=== PATIENT | male | born 1965 | race Caucasian/White ===

== ENCOUNTER 2017-08-19 13:11 | Emergency (ER) | payer BC ==
[~2017-08-19] VITALS: Ht 190.5 cm; Wt 117.0 kg
[2017-08-19 13:20] VITALS: BP 110/73; PULSE 74; RESP 18; TEMP 97.6; O2SAT 95
--- NOTE | 2017-08-19 13:46 | PD ---
HPI Chief Complaint: Numbness/Tingling Time Seen by Provider: 13:38 Travel History International Travel<30 days: No Contact w/Intl Traveler<30days: No Traveled to known affect area: No History of Present Illness HPI Patient presents with complaints of numbness and tingling in his left arm, primarily in his hand since 530 this morning. History of diabetes and hyperlipidemia. No previous history of TIA or CVA. No previous cardiac history. No family history of cardiac disease. No history of hypertension. Denies any diaphoresis or shortness of breath. Denies any chest pain or radiation to the neck. Denies any history of cervical degenerative disc disease. Denies any aggravating or alleviating factors. Denies significant pain. Denies any neck pain. PFSH Past Medical History High Cholesterol: Yes Diabetes: Yes Patient Takes Glucophage: Yes Diminished Hearing: No Medical other: Yes (Cat scratch fever) Influenza Vaccination: No ?: Not Past Surgical History Other Surgery: Yes (Dev Septum, Lymph nodes L axilla removed) Social History Alcohol Use: Yes (rarely) Tobacco Use: No Substance Use: No Review of Systems ROS Limitations: Other: (Left arm tingling) General / Constitutional: No: Fever Eyes: No: Visual changes HENT: No: Headaches Cardiovascular: No: Chest Pain or Discomfort Respiratory: No: Shortness of Breath Gastrointestinal: No: Abdominal Pain Genitourinary: No: Dysuria Musculoskeletal: No: Pain Skin: No Rash Neurologic: No: Weakness Psychiatric: No: Depression Endocrine: No: Polydipsia Hematologic/Lymphatic: No: Easy Bruising Physical Exam Narrative GENERAL: No apparent distress alert and oriented SKIN: Focused skin assessment warm/dry. HEAD: Atraumatic. Normocephalic. EYES: Pupils equal and round. No scleral icterus. No injection or drainage. ENT: No nasal bleeding or discharge. Mucous membranes pink and moist. NECK: Trachea midline. No JVD. CARDIOVASCULAR: Regular rate and rhythm. No murmur appreciated. RESPIRATORY: No accessory muscle use. Clear to auscultation. Breath sounds equal bilaterally. GASTROINTESTINAL: Abdomen soft, non-tender, nondistended. Hepatic and splenic margins not palpable. MUSCULOSKELETAL: No obvious deformities. No clubbing. No cyanosis. No edema. NEUROLOGICAL: Awake and alert. No obvious cranial nerve deficits. Motor grossly within normal limits. Normal speech. PSYCHIATRIC: Appropriate mood and affect; insight and judgment normal. Data Data Last Documented VS Vital Signs Date Time Temp Pulse Resp B/P (MAP) Pulse Ox O2 Delivery O2 Flow Rate FiO2 08/19/17 14:37 90 18 106/63 (77) 95 Room Air 08/19/17 13:20 97.6 Orders Orders Electrocardiogram (08/19/17 13:38) Ckmb (Isoenzyme) Profile (08/19/17 13:38) Complete Blood Count With Diff (08/19/17 13:38) Comprehensive Metabolic Panel (08/19/17 13:38) Magnesium (Mg) (08/19/17 13:38) Prothrombin Time / Inr (Pt) (08/19/17 13:38) Act Partial Throm Time (Ptt) (08/19/17 13:38) Troponin I (08/19/17 13:38) Chest, Single Ap (08/19/17 13:38) Ecg Monitoring (08/19/17 13:38) Bilateral Bp Monitoring (08/19/17 13:38) Iv Access Insert/Monitor (08/19/17 13:38) Oximetry (08/19/17 13:38) Oxygen Administration (08/19/17 13:38) Ct Brain W/O Iv Contrast(Rout) (08/19/17 13:38) Ct Cerv Spine W/O Contrast (08/19/17 ) Labs Laboratory Tests Test 08/19/17 14:30 White Blood Count 6.8 TH/MM3 Red Blood Count 4.87 MIL/MM3 Hemoglobin 14.2 GM/DL Hematocrit 43.0 % Mean Corpuscular Volume 88.2 FL Mean Corpuscular Hemoglobin 29.1 PG Mean Corpuscular Hemoglobin Concent 33.0 % Red Cell Distribution Width 12.7 % Platelet Count 241 TH/MM3 Mean Platelet Volume 7.9 FL Neutrophils (%) (Auto) 50.4 % Lymphocytes (%) (Auto) 38.7 % Monocytes (%) (Auto) 7.0 % Eosinophils (%) (Auto) 3.2 % Basophils (%) (Auto) 0.7 % Neutrophils # (Auto) 3.5 TH/MM3 Lymphocytes # (Auto) 2.6 TH/MM3 Monocytes # (Auto) 0.5 TH/MM3 Eosinophils # (Auto) 0.2 TH/MM3 Basophils # (Auto) 0.0 TH/MM3 CBC Comment DIFF FINAL Differential Comment Prothrombin Time 10.3 SEC Prothromb Time International Ratio 1.0 RATIO Activated Partial Thromboplast Time 25.5 SEC Blood Urea Nitrogen 16 MG/DL Creatinine 1.30 MG/DL Random Glucose 218 MG/DL Total Protein 6.7 GM/DL Albumin 3.4 GM/DL Calcium Level 8.8 MG/DL Magnesium Level 2.0 MG/DL Alkaline Phosphatase 85 U/L Aspartate Amino Transf (AST/SGOT) 13 U/L Alanine Aminotransferase (ALT/SGPT) 24 U/L Total Bilirubin 0.3 MG/DL Sodium Level 140 MEQ/L Potassium Level 3.9 MEQ/L Chloride Level 106 MEQ/L Carbon Dioxide Level 27.3 MEQ/L Anion Gap 7 MEQ/L Estimat Glomerular Filtration Rate 58 ML/MIN Total Creatine Kinase 79 U/L Troponin I LESS THAN 0.02 NG/ML MDM Medical Decision Making Medical Screen Exam Complete: Yes Emergency Medical Condition: Yes Differential Diagnosis CVA, TIA, MD, cervical radiculopathy, idiopathic neuropathy Narrative Course Assessment plan discussed with patient at bedside. EKG reveals sinus rhythm rate of 78. Cardiac enzymes are negative. Lab work within normal limits. Last [address] 08/19/171337 Signed Impressions: CONCLUSION: Negative noncontrast head CT. Chest X-Ray 08/19/171337 Signed Impressions: CONCLUSION: Slight basilar atelectasis. Otherwise negative. Cervical Spine CT 08/19/17 0000 Signed Impressions: CONCLUSION: 1. No fracture or subluxation of the cervical spine. 2. Degenerative changes as above, most severe at C5/C6 and C6/C7. 3. Age indeterminate by foraminal disc protrusions at C6/C7 with left greater than right foraminal stenosis. 4. Chronic/degenerative appearing left foraminal stenosis at C5/C6. 5. No high-grade spinal stenosis demonstrated. Diagnosis Primary Impression: Cervical radiculopathy Patient Instructions: General Instructions Additional Instructions: Encourage nonsteroidal anti-inflammatories warm heat gentle stretching strengthening and massage. Muscular relaxer as needed. Follow-up with PCP. Return to the emergency room with any onset of new symptoms. Med/Other Pt SpecificInfo: Prescription(s) given Scripts Cyclobenzaprine (Flexeril) 10 Mg Tab 10 MG PO TID for Pain Management, #15 TAB 0 Refills Prov: Joao Zhong MD 08/19/17 Disposition: 01 DISCHARGE HOME Condition: Good Joao Zhong MD Aug 19, 2017 13:46
[2017-08-19 13:50] VITALS: O2SAT 5; O2SAT 95
--- NOTE | 2017-08-19 14:08 | RADRPT ---
EXAM DATE: 08/19/2017 2:01 PM EDT AGE/SEX: 51 years / Male INDICATIONS: Left arm and hand numbness,and tingling CLINICAL DATA: This is the patient's initial encounter. Patient reports that signs and symptoms have been present for 1 day and indicates a pain score of 0/10. MEDICAL/SURGICAL HISTORY: None. None. COMPARISON: No prior [facility] exams available for comparison. FINDINGS: Mild bibasilar atelectasis noted, mostly on the left. No confluent infiltrate demonstrated. No pleura l effusion or pneumothorax. CONCLUSION: Slight basilar atelectasis. Otherwise negative. Electronically signed by: Lam Calhoun MD 08/19/2017 2:07 PM EDT
--- NOTE | 2017-08-19 14:23 | RADRPT ---
EXAM DATE: 08/19/2017 2:17 PM EDT AGE/SEX: 51 years / Male INDICATIONS: Left hand numbness today. CLINICAL DATA: This is the patient's initial encounter. Patient reports that signs and symptoms have been present for 1 day and indicates a pain score of 0/10. MEDICAL/SURGICAL HISTORY: Diabetes. None. RADIATION DOSE: 62.55 CTDI (mGy) COMPARISON: No prior [facility] exams available for comparison. TECHNIQUE: CT of the head without contrast. Using automated exposure control and adjustment of the mA and/or kV according to patient size, radiation dose was kept as low as reasonably achievable to ob tain optimal diagnostic quality images. FINDINGS: Cerebrum: The ventricles are normal for age. No evidence of midline shift, mass lesion, hemorrhage or acute infarction. No extraaxial fluid collections are seen. Posterior Fossa: The cerebellum and brainstem are intact. The 4th ventricle is midline. The cerebe llopontine angle is unremarkable. Extracranial: The visualized portion of the orbits is intact. Skull: The calvaria is intact. No evidence of skull fracture. CONCLUSION: Negative noncontrast head CT. Electronically signed by: Lam Calhoun MD 08/19/2017 2:21 PM EDT
--- NOTE | 2017-08-19 14:28 | RADRPT ---
EXAM DATE: 08/19/2017 2:20 PM EDT AGE/SEX: 51 years / Male INDICATIONS: Left hand numbness today. CLINICAL DATA: This is the patient's initial encounter. Patient reports that signs and symptoms have been present for 1 day and indicates a pain score of 0/10. MEDICAL/SURGICAL HISTORY: Diabetes. None. RADIATION DOSE: 26.58 CTDI (mGy) COMPARISON: No prior [facility] exams available for comparison. TECHNIQUE: Contiguous axial images were obtained using helical multirow detector technique. The vol umetric data was post-processed with multiplanar reconstruction in oblique axial, sagittal, and coron al planes. Using automated exposure control and adjustment of the mA and/or kV according to patient s ize, radiation dose was kept as low as reasonably achievable to obtain optimal diagnostic quality rosalee ges. FINDINGS: Vertebrae: Normal vertebral body height. Alignment: Normal. No subluxation. C2-3: The bony spinal canal is normal in size. No evidence of disc bulge or herniation. The neural foramina are bilaterally patent. C3-4: Disc height within normal limits. Mild bilateral uncovertebral and facet osteoarthritis withou t significant foraminal or spinal stenosis. C4-5: Disc height within normal limits. Mild bilateral uncovertebral and facet osteoarthritis withou t significant foraminal or spinal stenosis. C5-6: The disc has moderate loss of height and vacuum phenomena. There is a small, broad/diffuse dis c osteophyte complex and left greater than right uncovertebral and facet osteoarthritis with hypertro phic bone. There is mild to moderate right and severe left foraminal stenosis. C6-7: The disc has moderate loss of height. There is a small, broad/diffuse disc osteophyte complex and mild to moderate bilateral uncovertebral and facet osteoarthritis. There are superimposed by fora bernardo disc protrusions and with suspected moderate to severe right and severe left foraminal stenosis . C7-T1: The bony spinal canal is normal in size. No evidence of disc bulge or herniation. The neura l foramina are bilaterally patent. CONCLUSION: 1. No fracture or subluxation of the cervical spine. 2. Degenerative changes as above, most severe at C5/C6 and C6/C7. 3. Age indeterminate by foraminal disc protrusions at C6/C7 with left greater than right foraminal s tenosis. 4. Chronic/degenerative appearing left foraminal stenosis at C5/C6. 5. No high-grade spinal stenosis demonstrated. Electronically signed by: Lam Calhoun MD 08/19/2017 2:27 PM EDT
[2017-08-19 14:36] VITALS: BP_SYST 107; BP_SYST 116; BP_DIAS 63; BP_DIAS 67; PULSE 90; RESP 18; O2SAT 95
[2017-08-19 14:37] VITALS: BP 106/63; PULSE 90; RESP 18; O2SAT 95
[2017-08-19 14:41] LABS: AUTOMATED NEUTROPHIL # 3.5 TH/MM3 (1.8-7.7); BASOPHIL % 0.7 % (0.0-2.0); EOSINOPHIL # 0.2 TH/MM3 (0-0.4); EOSINOPHIL % 3.2 % (0.0-4.0); HEMOGLOBIN 14.2 GM/DL (13.0-17.0); LYMPH % 38.7 % (9.0-44.0); LYMPHOCYTE # 2.6 TH/MM3 (1.0-4.8); MEAN CELL VOLUME 88.2 FL (80.0-100.0); MEAN CORPUSCULAR HEMOGLOBIN 29.1 PG (27.0-34.0); MEAN PLATELET VOLUME 7.9 FL (7.0-11.0); MONOCYTE # 0.5 TH/MM3 (0-0.9); NEUT % 50.4 % (16.0-70.0); PLATELET COUNT 241 TH/MM3 (150-450); RED BLOOD COUNT 4.87 MIL/MM3 (4.50-5.90); RED CELL DISTRIBUTION WIDTH 12.7 % (11.6-17.2); WHITE BLOOD COUNT 6.8 TH/MM3 (4.0-11.0)
[2017-08-19 14:50] LABS: CHLORIDE 106 MEQ/L (98-107); SODIUM (NA) 140 MEQ/L (136-145)
[2017-08-19 14:53] LABS: ALBUMIN 3.4 GM/DL (3.4-5.0); BICARBONATE 27.3 MEQ/L (21.0-32.0); CALCIUM 8.8 MG/DL (8.5-10.1); GLUCOSE,RANDOM 218 MG/DL (74-106)
[2017-08-19 14:54] LABS: BLOOD UREA NITROGEN 16 MG/DL (7-18); PROTHROMBIN TIME - PATIENT 10.3 SEC (9.8-11.6)
[2017-08-19 14:57] LABS: ALT (GPT) 24 U/L (12-78); AST (GOT) 13 U/L (15-37); GLOMERULAR FILTRATION RATE 58 ML/MIN (>89)
[2017-08-19 14:58] LABS: TOTAL BILIRUBIN ADULT 0.3 MG/DL (0.2-1.0); TOTAL PROTEIN 6.7 GM/DL (6.4-8.2)
[2017-08-19 14:59] LABS: ALKALINE PHOSPHATASE 85 U/L (45-117)
[2017-08-19 15:02] LABS: TROPONIN I LESS THAN 0.02 NG/ML (0.02-0.05)
[2017-08-19] MEDS ORDERED: CYCL10TA PO (15:29)
--- NOTE | 2017-08-20 15:44 | EKG ---
Date Performed: 08/19/2017 Time Performed: 13:24:05 PTAGE: 51 years EKG: Sinus rhythm Left axis deviation Slight right ventricular conduction disturbance NO PREVIOUS TRACING DOCTOR: Gunnar Askew Interpretating Date/Time 08/20/2017 15:43:28
== END 2017-08-19 15:43 | disposition home or self-care (01) ==
LOC: PHED 13:11
DX: M54.12 Radiculopathy, cervical region (principal); E11.9 Type 2 diabetes mellitus without complications; E78.5 Hyperlipidemia, unspecified
CPT/HCPCS: 70450; 71045; 72125; 80053; 82550; 83735; 84484; 85025; 85610; 85730; 93005; 99285